=== PATIENT | female | born 2000 | race Caucasian/White ===

== ENCOUNTER 2018-08-28 16:11 | Emergency (ER) | payer BC ==
[2018-08-28] MEDS ORDERED: METOCLOPRAMIDE 10 MG/2 ML VIAL IVP ONE (16:42)
[2018-08-28] MEDS ORDERED: KETOROLAC 30 MG/1 ML SDV IVP ONE (16:42)
[2018-08-28] MEDS ORDERED: DEXAMETHASONE 10 MG/ML VIAL IVP ONE (16:42)
== END 2018-08-28 18:34 | disposition home or self-care (01) ==
DX: G43.909 Migraine, unspecified, not intractable, without status migrainosus (principal)